=== PATIENT | female | born 1970 | race Caucasian/White ===

== ENCOUNTER 2019-02-12 17:25 | Inpatient (IN) | payer BC, OTHER ==
[2019-02-12] VITALS (8 sets, daily range): BP systolic 79–96; BP diastolic 48–62
[~2019-02-12] VITALS: Ht 165.1 cm; Wt 92.1 kg
[2019-02-12] MEDS ORDERED: NS IV 1000 ML 1,000 ML IV STA ×2 (18:27→19:50)
[2019-02-12] MEDS ORDERED: KETOROLAC 30 MG/ML VIAL IVP ONE (18:30)
[2019-02-12] MEDS ORDERED: IOHEXOL 350 MG/ML 100 ML (OMNIPAQUE 350) VIAL IV ONE (18:30)
[2019-02-12] MEDS ORDERED: HOLD METFORMIN - RECEIVED CONTRAST 20 ML VIAL IV SCH (18:30)
[2019-02-12] MEDS ORDERED: ORPHENADRINE 60 MG/2 ML (NORFLEX) AMP IV ONE (18:30)
[2019-02-12] MEDS ORDERED: NS 100 ML (IVPB) BAG IV ONE (18:30)
--- NOTE | 2019-02-12 18:35 | ED Fall/Injury ---
General Chief Complaint: Rib Pain Stated Complaint: RIB PAIN, PT FELL DOWN STAIRS Nursing Triage Note: PT FELL OFF THE SIDE OF HER STEPS GOING INTO HER HOUSE DUE TO NO SIDERAILS. APPROXIMATELY 4 STEPS. Source: patient, family (Mom) History of Present Illness Date Seen by Provider: Feb 12, 2019 Time Seen by Provider: 18:04 Initial Comments 48 yo F presents with complaints of left rib pain and pain in her head, neck and left flank since falling off of a set of stairs when going up them to the house around 1630 today. She denies losing consciousness but was stunned for a while. She took Naproxen after the injury but has had increasing pain since the fall. She has had increasing head pain as well. She feels it was around 4-5 feet up when she fell. She has increased pain when she breaths in or palpation of her left chest wall. She is seeing "dots" in her vision now and diaphoretic on my exam, but family reports that she has a history of hypoglycemia and can get this way if she does not eat, however her glucose was 120 when checked in the ED. She had last eaten around lunch time. She is drowsy on exam and slow to answer questions as well. She had a hysterectomy. She denies seeing any blood in her urine and does need to urinate so will get a urine specimen while she is here in ED. Allergies and Home Medications Allergies Coded Allergies: No Known Drug Allergies (Unverified , 02/12/19) Patient Home Medication List Home Medication List Reviewed: Yes Review of Systems Review of Systems Constitutional: No chills; diaphoresis; No fever Eyes: Blurred Vision (seeing dots in her vision); Denies Photophobia Ears, Nose, Mouth, Throat: denies ear pain, denies ear discharge, denies nose pain, denies nose discharge, denies epistaxis Respiratory: No cough, No short of breath; other (left rib pains from where she fell and hit them on ground around 1630 today) Cardiovascular: chest pain (left rib pains from where she hit them on ground around 1630 today) Gastrointestinal: No nausea, No vomiting; other (left flank pain since the fall) Genitourinary: no symptoms reported Musculoskeletal: see HPI Skin: No change in color (no bruising) Psychiatric/Neurological: Headache, Weakness (generalized) Past Hxanegh-Gypyvt-Jxeain Hx Past Med/Social Hx: Reviewed Nursing Past Med/Soc Hx Patient Social History Alcohol Use: Denies Use Recreational Drug Use: No Smoking Status: Never a Smoker Type Used: Cigarettes 2nd Hand Smoke Exposure: No Recent Foreign Travel: No Contact w/Someone Who Travel: No Recent Infectious Disease Expo: No Recent Hopitalizations: No Physical Abuse: No Sexual Abuse: No Mistreated: No Fear: No Seasonal Allergies Seasonal Allergies: No Past Medical History Surgeries: Yes (2 D&C'S) Hysterectomy Respiratory: No Cardiac: Yes 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 oz. 81.471073uw; BMI Method:Stated General Appearance: WD/WN HEENT: PERRL/EOMI, normal ENT inspection, TMs normal (negative hemotympanum. no drainage of fluid from either TM), pharynx normal, other (no العراقي sign, no raccoon sign, no drainage of CSF from nose or ears.) Neck: full range of motion, supple, tender lateral (left side of paraspinal muscles) Cardiovascular: normal peripheral pulses, regular rate, rhythm Respiratory: lungs clear, no respiratory distress, no accessory muscle use, decreased breath sounds (poor inspiratory effort), other (tender to palpation on left side of chest wall. no crepitus) Gastrointestinal: normal bowel sounds, soft, no pulsatile mass, other (tender to palpation on left flank and wrapping around left abdominal wall) Rectal: deferred Back: no CVA tenderness, no vertebral tenderness Extremities: normal range of motion, non-tender, normal inspection, no calf tenderness Neurologic/Psychiatric: sharepoint admin II-XII nml as tested, no motor/sensory deficits, oriented x 3, other (patient is drowsy and slow to respond to questions) Skin: normal color, diaphoresis Raul Coma Score Best Eye Response: (4) Open Spontaneously Best Verbal Response: (5) Oriented Best Motor Response: (6) Obeys Commands [place] Total: 15 Progress/Results/Core Measures Results/Orders Lab Results Laboratory Tests Test 02/12/19 18:19 02/12/19 18:40 02/12/19 19:30 02/12/19 19:38 Range/Units Glucometer 120 H 70-110 MG/DL White Blood Count 9.1 4.3-11.0 10^3/uL Red Blood Count 4.37 4.35-5.85 10^6/uL Hemoglobin 12.4 11.5-16.0 G/DL Hematocrit 38 35-52 % Mean Corpuscular Volume 87 80-99 FL Mean Corpuscular Hemoglobin 28 25-34 PG Mean Corpuscular Hemoglobin Concent 33 32-36 G/DL Red Cell Distribution Width 13.1 10.0-14.5 % Platelet Count 395 130-400 10^3/uL Mean Platelet Volume 9.3 7.4-10.4 FL Neutrophils (%) (Auto) 58 42-75 % Lymphocytes (%) (Auto) 34 12-44 % Monocytes (%) (Auto) 6 0-12 % Eosinophils (%) (Auto) 1 0-10 % Basophils (%) (Auto) 0 0-10 % Neutrophils # (Auto) 5.3 1.8-7.8 X 10^3 Lymphocytes # (Auto) 3.1 1.0-4.0 X 10^3 Monocytes # (Auto) 0.5 0.0-1.0 X 10^3 Eosinophils # (Auto) 0.1 0.0-0.3 10^3/uL Basophils # (Auto) 0.0 0.0-0.1 10^3/uL Sodium Level 134 L 135-145 MMOL/L Potassium Level 4.6 3.6-5.0 MMOL/L Chloride Level 94 L 98-107 MMOL/L Carbon Dioxide Level 25 21-32 MMOL/L Anion Gap 15 H 5-14 MMOL/L Blood Urea Nitrogen 23 H 7-18 MG/DL Creatinine 1.20 0.60-1.30 MG/DL Estimat Glomerular Filtration Rate 48 BUN/Creatinine Ratio 19 Glucose Level 142 H 70-105 MG/DL Calcium Level 9.3 8.5-10.1 MG/DL Corrected Calcium 9.2 8.5-10.1 MG/DL Total Bilirubin 0.2 0.1-1.0 MG/DL Aspartate Amino Transf (AST/SGOT) 40 H 5-34 U/L Alanine Aminotransferase (ALT/SGPT) 38 0-55 U/L Alkaline Phosphatase 123 40-136 U/L Total Protein 7.5 6.4-8.2 GM/DL Albumin 4.1 3.2-4.5 GM/DL Urine Color YELLOW Urine Clarity CLEAR Urine pH 5.5 5-9 Urine Specific [place] 1.010 L 1.016-1.022 Urine Protein NEGATIVE NEGATIVE Urine Glucose (UA) NEGATIVE NEGATIVE Urine Ketones NEGATIVE NEGATIVE Urine Nitrite NEGATIVE NEGATIVE Urine Bilirubin NEGATIVE NEGATIVE Urine Urobilinogen 0.2 NORMAL MG/DL Urine Leukocyte Esterase NEGATIVE NEGATIVE Urine RBC (Auto) NEGATIVE NEGATIVE Urine RBC NONE /HPF Urine WBC 0-2 /HPF Urine Squamous Epithelial Cells 0-2 /HPF Urine Crystals PRESENT H /LPF Urine Calcium Oxalate Crystals MODERATE H /LPF Urine Bacteria TRACE /HPF Urine Casts PRESENT /LPF Urine Hyaline Casts 2-5 H /LPF Urine Mucus SMALL H /LPF Urine Culture Indicated NO My Orders Orders - GABRIELA PRAKASH MD Ua Culture If Indicated (02/12/19 18:24) Ct Head/Cervical Spine Wo (02/12/19 18:24) Iv/Invasive Line Insertion .IV start (02/12/19 18:) Cbc With Automated Diff (02/12/19:) Comprehensive Metabolic Panel (02/12/19 18:24) Ct Chest/Abdomen/Pelvis W (02/12/19 18:24) Accucheck Stat ONCE (02/12/19 18:24) Ketorolac Injection (Toradol Injection) (02/12/19 18:30) Ns Iv 1000 Ml (Sodium Chloride 0.9%) (02/12/19 18:27) Orphenadrine Injection (Norflex Injectio (02/12/19 18:30) Iohexol Injection (Omnipaque 350 Mg/Ml 1 (02/12/19 18:30) Received Contrast (Hold Metformin- Contr (02/12/19 18:30) Sodium Chloride Flush (Catheter Flush Sy (02/12/19 18:30) Ns (Ivpb) (Sodium Chloride 0.9% Ivpb Bag (02/12/19 18:30) Ice: Apply To Affected Area (02/12/19 18:30) Ondansetron Injection (Zofran Injectio (02/12/19 18:53) Protime With Inr (02/12/19 19:39) Partial Thromboplastin Time (02/12/19 19:39) Ns Iv 1000 Ml (Sodium Chloride 0.9%) (02/12/19 19:50) Ns Iv 1000 Ml (Sodium Chloride 0.9%) (02/12/19 20:00) Medications Given in ED Current Medications Medications Dose Ordered Sig/Ayaan Route Start Time Stop Time Status Last Admin Dose Admin Iohexol 100 ml ONCE ONCE IV 02/12/19 18:30 02/12/19 18:31 DC 02/12/19 19:10 100 ML Ketorolac Tromethamine 15 mg ONCE ONCE IVP 02/12/19 18:30 02/12/19 18:31 DC 02/12/19 18:42 15 MG Orphenadrine Citrate 30 mg ONCE ONCE IV 02/12/19 18:30 02/12/19 18:31 DC 02/12/19 18:41 30 MG Sodium Chloride 10 ml NEEDED PRN IV 02/12/19 18:30 02/12/19 19:11 10 ML Sodium Chloride 100 ml ONCE ONCE IV 02/12/19 18:30 02/12/19 18:31 DC 02/12/19 19:11 100 ML Vital Signs/I&O 02/12/19 17:42 Temp 98.7 Pulse 78 Resp 18 B/P (MAP) 134/94 (107) O2 Delivery Room Air Blood Pressure Mean: 107 FSBG Bedside Testing Finger Stick Blood Glucose: 120 Blood Glucose Action Taken: reported to dr prakash Progress Progress Note #1: Progress Note with her having diaphoresis and being slow to respond to questions will check her sugar. Since her glucose is 120 it really should not be causing her to be having hypoglycemia symptoms. Will check labs and CT scans to make sure she does not have other injuries causing her to have these symptoms will have her try some juice and crackers. Toradol and norflex for pain. Progress Note #2: Progress Note 192 As I was reviewing the imaging on her CT scans the radiologist called and informed me that she did have a splenic rupture with active bleeding into her abdomen and pelvis. I immediately contacted Dr. Simon the on-call surgeon and he plans to take the patient immediately to surgery on arrival to [place] [facility] the patient is unstable and her blood pressure has been dropping since she arrived in the emergency department. When talking to him her blood pressure was 97/54. She has a stable hemoglobin from the initial CBC of 12.4. Will attempt to get a second large-bore IV and a second bag of fluids. Contact the EMS for transfer and had on coags to her blood work. Progress Note #3: Time: 20:03 Progress Note I called and updated her mom about the injuries and need for emergent transfer and surgery so that she is aware. Diagnostic Imaging Diagonstic Imaging: CT Plain Films/CT/US/NM/MRI: c-spine, head Comments NAME: CHAK[facility]ANDRA [facility] REC#: [id number] PT STATUS: REG ER : 1970 PHYSICIAN: GABRIELA PRAKASH MD ADMIT DATE: 02/12/19/ER FS Signed Date of Exam:02/12/19 CT HEAD/CERVICAL SPINE WO PROCEDURE: CT head and CT cervical spine without contrast. TECHNIQUE: Multiple contiguous axial images were obtained through the brain and cervical spine without the use of intravenous contrast. Sagittal and coronal reformations through the cervical spine were then performed. Auto Exposure Controls were utilized during the CT exam to meet ALARA standards for radiation dose reduction. INDICATION: Fall from steps, pain. COMPARISON: No priors. FINDINGS: CT head: There is no intracranial hemorrhage, hydrocephalus, edema, mass, mass effect, or evidence for an elevation of the intracranial pressures. No calvarial deformity, no hemo-sinus, and no pneumocephalus. Ventricular system is nondilated and nondisplaced. No acute abnormality. CT cervical spine: Cervical alignment is anatomic. The body heights are maintained. The alignment is normal. Vertebral statures are normal. No fracture or paravertebral hematoma. IMPRESSION: 1. CT head: Negative. 2. CT cervical spine: Negative. Dictated by: Dictated on workstation # [id number] Dict: 02/12/191920 Trans: 02/12/191934 AS6 [id number] Interpreted by: KWAME MORALES Electronically signed by: KWAME MORALES 02/12/191934 Diagonstic Imaging: CT Plain Films/CT/US/NM/MRI: chest, abdomen, pelvis Comments NAME: CHAKASEPTEMBER [facility] REC#: [id number] PT STATUS: REG ER : 1970 PHYSICIAN: GABRIELA PRAKASH MD ADMIT DATE: 02/12/19/ER FS Signed Date of Exam:02/12/19 CT CHEST/ABDOMEN/PELVIS W PROCEDURE: CT chest, abdomen, and pelvis with contrast. TECHNIQUE: Multiple contiguous axial images were obtained through the chest, abdomen, and pelvis after the administration of intravenous contrast. Auto Exposure Controls were utilized during the CT exam to meet ALARA standards for radiation dose reduction. INDICATION: Fall. Left-sided rib pain. 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 There are no findings of dissection. There is some mild ascending aortic ectasia measuring up to 3.9 cm. Heart size appears appropriate. There is no mediastinal adenopathy. The lungs demonstrate no evidence of focal infiltrate or consolidation. There is no effusion or evidence of a hemothorax. There is no pneumothorax. There is no fracture evident of the shoulder girdles. There is no sternal or manubrial fracture. There may be hairline fractures of the posterior left 10th and 11th ribs, but there is no evidence of a displaced rib fracture. Within the abdomen, there is a large splenic laceration with active contrast extravasation and large degree of contrast accumulating within a perisplenic hematoma. The liver demonstrates no laceration. There is a benign hemangioma within the left hepatic lobe. The gallbladder is nondistended. There is no adrenal hematoma. The pancreas is unremarkable. The kidneys enhance normally and are nonobstructed. Small and large bowel are normal in caliber without obstruction or abnormal bowel thickening. There is no bowel obstruction. There is moderate hemoperitoneum evident within the pelvis. Urinary bladder is unremarkable. The patient is status post hysterectomy. There are no findings of a pelvic fracture. There is a hematoma involving the left flank. Alignment of the thoracic and lumbar spine appears maintained. The facets are normally aligned. There is no facet joint or disc space widening. The vertebral body heights are maintained. No acute spinal fracture evident. IMPRESSION: 1. Complex splenic laceration with large perisplenic hematoma and a large degree of active bleeding and contrast extravasation. There is also moderate hemoperitoneum evident within the pelvis. 2. Apparent nondisplaced left posterior 10th and 11th rib fractures. 3. Left subcutaneous flank hematoma just above the gluteal fossa without active extravasation. 4. Lungs clear without evidence of hemothorax. 5. 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 There is ascending aortic ectasia but no dissection. Findings of the large degree of active contrast extravasation and active bleeding related to the patient's splenic laceration were called to Dr. Prakash in the [facility] at 7:29 p.m. Dictated by: Dictated on workstation # [id number] Dict: 02/12/191922 Trans: 02/12/191941 [id number] Interpreted by: ALBERTINA BLEDSOE MD Electronically signed by: ALBERTINA BLEDSOE MD 02/12/191941 Critical Care Note Critical Care Total Time (minutes) 45 minutes Progress 45 minutes of critical care time was spent with the patient. This time was excluding separately billable procedures. Time was spent in obtaining history from patient and family, ordering labs and reviewing results, ordering radiology tests and reviewing results, discussion with consultants and family, documentation in the chart. Departure Communication (Admissions) Time/Spoke to Admitting Phy: 19:29 D/w Dr. Simon about traumatic rupture of spleen and emergent need for transfer. He accepted and since her blood pressure was dropping he will contact the nurse crane crew supervisor and OR crew to meet the patient for emergent surgery. I did also speak with the ER and nurse practitioner at [facility] so they are aware too. Impression Primary Impression: Traumatic rupture of spleen Qualified Codes: S36.09XA - Other injury of spleen, initial encounter Additional Impressions: Fall (on) (from) other stairs and steps, initial encounter Multiple fractures of ribs, left side, initial encounter for closed fracture Disposition: ADMITTED INPATIENT Condition: Critical Admissions Decision to Admit Reason: Admit from ER (Trauma) Decision to Admit/Date: Feb 12, 2019 Time/Decision to Admit Time: 19:29 Departure-Patient Inst. Referrals: SOCORRO CONKLIN APRN (PCP) Primary Care Physician GABRIELA PRAKASH MD Feb 12, 2019 18:35
[2019-02-12 18:48] LABS: WHITE BLOOD COUNT 9.1 10^3/uL (4.3-11.0)
[2019-02-12 18:49] LABS: BASOPHILS % (AUTO) 0 % (0-10); EOSINOPHILS % (AUTO) 1 % (0-10); HEMATOCRIT 38 % (35-52); HEMOGLOBIN 12.4 G/DL (11.5-16.0); LYMPHOCYTES # (AUTO) 3.1 X 10^3 (1.0-4.0); LYMPHOCYTES % (AUTO) 34 % (12-44); MEAN CORPUSCULAR HEMOGLOBIN 28 PG (25-34); MEAN CORPUSCULAR HGB CONC 33 G/DL (32-36); MEAN CORPUSCULAR VOLUME 87 FL (80-99); MEAN PLATELET VOLUME 9.3 FL (7.4-10.4); MONOCYTES # (AUTO) 0.5 X 10^3 (0.0-1.0); MONOCYTES % (AUTO) 6 % (0-12); NEUTROPHILS # (AUTO) 5.3 X 10^3 (1.8-7.8); NEUTROPHILS % (AUTO) 58 % (42-75); PLATELET COUNT 395 10^3/uL (130-400); RED CELL DISTRIBUTION WIDTH 13.1 % (10.0-14.5)
[2019-02-12 18:50] LABS: EOSINOPHILS # (AUTO) 0.1 10^3/uL (0.0-0.3)
[2019-02-12] MEDS ORDERED: ONDANSETRON 4 MG/2 ML (SDV) Z0FRAN IVP STA (18:53)
[2019-02-12 19:05] LABS: POTASSIUM 4.6 MMOL/L (3.6-5.0)
[2019-02-12 19:06] LABS: ALBUMIN 4.1 GM/DL (3.2-4.5); BILIRUBIN,TOTAL 0.2 MG/DL (0.1-1.0); CALCIUM 9.3 MG/DL (8.5-10.1); CREATININE SERUM 1.2 MG/DL (0.60-1.30); TOTAL PROTEIN 7.5 GM/DL (6.4-8.2)
[2019-02-12] MEDS: CATHETER FLUSH 10 ML SYR IV PRN (19:11)
--- NOTE | 2019-02-12 19:28 | Diagnostic Imaging Report ---
PROCEDURE: CT head and CT cervical spine without contrast. TECHNIQUE: Multiple contiguous axial images were obtained through the brain and cervical spine without the use of intravenous contrast. Sagittal and coronal reformations through the cervical spine were then performed. Auto Exposure Controls were utilized during the CT exam to meet ALARA standards for radiation dose reduction. INDICATION: Fall from steps, pain. COMPARISON: No priors. FINDINGS: CT head: There is no intracranial hemorrhage, hydrocephalus, edema, mass, mass effect, or evidence for an elevation of the intracranial pressures. No calvarial deformity, no hemo-sinus, and no pneumocephalus. Ventricular system is nondilated and nondisplaced. No acute abnormality. CT cervical spine: Cervical alignment is anatomic. The body heights are maintained. The alignment is normal. Vertebral statures are normal. No fracture or paravertebral hematoma. IMPRESSION: 1. CT head: Negative. 2. CT cervical spine: Negative. Dictated by: Dictated on workstation # [id number]
--- NOTE | 2019-02-12 19:42 | Diagnostic Imaging Report ---
PROCEDURE: CT chest, abdomen, and pelvis with contrast. TECHNIQUE: Multiple contiguous axial images were obtained through the chest, abdomen, and pelvis after the administration of intravenous contrast. Auto Exposure Controls were utilized during the CT exam to meet ALARA standards for radiation dose reduction. INDICATION: Fall. Left-sided rib pain. 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 There are no findings of dissection. There is some mild ascending aortic ectasia measuring up to 3.9 cm. Heart size appears appropriate. There is no mediastinal adenopathy. The lungs demonstrate no evidence of focal infiltrate or consolidation. There is no effusion or evidence of a hemothorax. There is no pneumothorax. There is no fracture evident of the shoulder girdles. There is no sternal or manubrial fracture. There may be hairline fractures of the posterior left 10th and 11th ribs, but there is no evidence of a displaced rib fracture. Within the abdomen, there is a large splenic laceration with active contrast extravasation and large degree of contrast accumulating within a perisplenic hematoma. The liver demonstrates no laceration. There is a benign hemangioma within the left hepatic lobe. The gallbladder is nondistended. There is no adrenal hematoma. The pancreas is unremarkable. The kidneys enhance normally and are nonobstructed. Small and large bowel are normal in caliber without obstruction or abnormal bowel thickening. There is no bowel obstruction. There is moderate hemoperitoneum evident within the pelvis. Urinary bladder is unremarkable. The patient is status post hysterectomy. There are no findings of a pelvic fracture. There is a hematoma involving the left flank. Alignment of the thoracic and lumbar spine appears maintained. The facets are normally aligned. There is no facet joint or disc space widening. The vertebral body heights are maintained. No acute spinal fracture evident. IMPRESSION: 1. Complex splenic laceration with large perisplenic hematoma and a large degree of active bleeding and contrast extravasation. There is also moderate hemoperitoneum evident within the pelvis. 2. Apparent nondisplaced left posterior 10th and 11th rib fractures. 3. Left subcutaneous flank hematoma just above the gluteal fossa without active extravasation. 4. Lungs clear without evidence of hemothorax. 5. 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 There is ascending aortic ectasia but no dissection. Findings of the large degree of active contrast extravasation and active bleeding related to the patient's splenic laceration were called to Dr. James in the [facility] at 7:29 p.m. Dictated by: Dictated on workstation # [id number]
[2019-02-12 19:47] LABS: CLARITY,URINE CLEAR; COLOR,URINE YELLOW; GLUCOSE, URINE (UA) NEGATIVE (NEGATIVE); PH,URINE 5.5 (5-9); PROTEIN,URINE NEGATIVE (NEGATIVE)
[2019-02-12 19:48] LABS: BACTERIA,URINE TRACE /HPF; BILIRUBIN,URINE NEGATIVE (NEGATIVE); CALCIUM OXALATE CRYSTALS,UR MODERATE /LPF; KETONES,URINE NEGATIVE (NEGATIVE); LEUKOCYTE ESTERASE ,URINE NEGATIVE (NEGATIVE); NITRITE,URINE NEGATIVE (NEGATIVE); SQUAMOUS EPITHELIAL CELL,UR 0-2 /HPF; UROBILINOGEN,URINE 0.2 MG/DL (NORMAL); WBC,URINE 0-2 /HPF
[2019-02-12] MEDS ORDERED: NS IV 1000 ML 1,000 ML IV SCH (20:00)
[2019-02-12 20:01] LABS: INR 1.1 (0.8-1.4); PROTHROMBIN TIME PATIENT 14.2 SEC (12.2-14.7)
[2019-02-12] MEDS ORDERED: fentaNYL INJECTION 100 MCG/2 ML AMP ONE (20:34)
--- NOTE | 2019-02-12 20:47 | Consultation - Surgery ---
History of Present Illness History of Present Illness Patient Consulted On(junito/time) 02/12/19 20:42 Time Seen by Provider: 20:33 History of Present Illness Surgery consulted regarding splenic laceration with active extravasation and hypotension. HPI per ED: 48 yo F presents with complaints of left rib pain and pain in her head, neck and left flank since falling off of a set of stairs when going up them to the house around 1630 today. She denies losing consciousness but was stunned for a while. She took Naproxen after the injury but has had increasing pain since the fall. She has had increasing head pain as well. She feels it was around 4-5 feet up when she fell. She has increased pain when she breaths in or palpation of her left chest wall. She is seeing "dots" in her vision now and diaphoretic on my exam, but family reports that she has a history of hypoglycemia and can get this way if she does not eat, however her glucose was 120 when checked in the ED. She had last eaten around lunch time. She is drowsy on exam and slow to answer questions as well. She had a hysterectomy. She denies seeing any blood in her urine and does need to urinate so will get a urine specimen while she is here in ED. I met pt at door as she was rolled in and walked her back to the OR. Pt is lethargic and diaphoretic, denies abdominal pain and stated she has to pee. Allergies and Home Medications Allergies Coded Allergies: No Known Drug Allergies (Unverified , 02/12/19) Patient Home Medication List Home Medication List Reviewed: Yes Past Lqltsun-Dotuqe-Yzswaa Hx Patient Social History Alcohol Use: Denies Use Recreational Drug Use: No Smoking Status: Never a Smoker Type Used: Cigarettes 2nd Hand Smoke Exposure: No Recent Foreign Travel: No Contact w/Someone Who Travel: No Recent Infectious Disease Expo: No Recent Hopitalizations: No Seasonal Allergies Seasonal Allergies: No Surgeries History of Surgeries: Yes (2 D&C'S) Surgeries: Hysterectomy Respiratory History of Respiratory Disorde: No Cardiovascular History of Cardiac Disorders: Yes Cardiac Disorders: Hypertension 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 Genitourinary History of Genitourinary Disor: No Gastrointestinal History of Gastrointestinal Di: No Musculoskeletal History of Musculoskeletal Dis: No Endocrine Endocrine Disorders: Hypothyroidsim HEENT History of HEENT Disorders: No Cancer History of Cancer: No Psychosocial History of Psychiatric Problem: No Blood Transfusions History of Blood Disorders: No Family Medical History Significant Family History: Diabetes, Hypertension Review of Systems-General Constitutional: diaphoresis, malaise, weakness EENTM: blurred vision; No mouth swelling, No epistaxis, No throat swelling Respiratory: No cough, No dyspnea on exertion, No hemoptysis; short of breath Cardiovascular: No chest pain, No palpitations, No syncope Gastrointestinal: No abdominal pain, No dysphagia, No hematemesis; loss of appetite; No nausea, No vomiting Genitourinary: No dysuria, No frequency, No hematuria Musculoskeletal: back pain, joint pain, joint swelling, muscle pain, muscle stiffness Skin: No change in color, No change in hair/nails, No rash Psychiatric/Neurological: Denies Anxiety, Denies Depressed, Denies Seizure, Denies Tremors Other pt denies any hx of abnormal bleeding or bruising Physical Exam-General Problems Physical Exam Vital Signs Vital Signs - First Documented 02/12/19 02/12/19 17:42 20:05 Temp 98.7 Pulse 78 Resp 18 B/P (MAP) 134/94 (107) Pulse Ox 99 O2 Delivery Room Air Capillary Refill : Less Than 3 Seconds General Appearance: moderate distress, obese Eyes: Bilateral Eye PERRL, Bilateral Eye EOMI HEENT: pharynx normal; No scleral icterus (R), No scleral icterus (L); pale conjunctivae (R), pale conjunctivae (L) Neck: non-tender, full range of motion, supple Respiratory: lungs clear, normal breath sounds, no respiratory distress, no accessory muscle use Cardiovascular: no murmur, tachycardia Gastrointestinal: normal bowel sounds, soft, no organomegaly, no pulsatile mass, hernia (small umbilical), other (large left flank hematoma) Back: CVA tenderness (L), muscle spasm, vertebral tenderness Extremities: normal range of motion, non-tender, normal inspection, no pedal edema, no calf tenderness 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, no motor/sensory deficits, alert, depressed affect Skin: damp, ecchymosis (left flank), pallor Lymphatic: no adenopathy (neck, axilla or groin) Data Review Labs Laboratory Tests 02/12/19 18:19: Glucometer 120H 02/12/19 18:40: White Blood Count 9.1, Red Blood Count 4.37, Hemoglobin 12.4, Hematocrit 38, Mean Corpuscular Volume 87, Mean Corpuscular Hemoglobin 28, Mean Corpuscular Hemoglobin Concent 33, Red Cell Distribution Width 13.1, Platelet Count 395, Mean Platelet Volume 9.3, Neutrophils (%) (Auto) 58, Lymphocytes (%) (Auto) 34, Monocytes (%) (Auto) 6, Eosinophils (%) (Auto) 1, Basophils (%) (Auto) 0, Neutrophils # (Auto) 5.3, Lymphocytes # (Auto) 3.1, Monocytes # (Auto) 0.5, Eosinophils # (Auto) 0.1, Basophils # (Auto) 0.0, Sodium Level 134L, Potassium Level 4.6, Chloride Level 94L, Carbon Dioxide Level 25, Anion Gap 15H, Blood Urea Nitrogen 23H, Creatinine 1.20, Estimat Glomerular Filtration Rate 48, BUN/Creatinine Ratio 19, Glucose Level 142H, Calcium Level 9.3, Corrected Calcium 9.2, Total Bilirubin 0.2, Aspartate Amino Transf (AST/SGOT) 40H, Alanine Aminotransferase (ALT/SGPT) 38, Alkaline Phosphatase 123, Total Protein 7.5, Albumin 4.1 02/12/19 19:30: Urine Color YELLOW, Urine Clarity CLEAR, Urine pH 5.5, Urine Specific [place] 1.010L, Urine Protein NEGATIVE, Urine Glucose (UA) NEGATIVE, Urine Ketones NEGATIVE, Urine Nitrite NEGATIVE, Urine Bilirubin NEGATIVE, Urine Urobilinogen 0.2, Urine Leukocyte Esterase NEGATIVE, Urine RBC (Auto) NEGATIVE, Urine RBC NONE, Urine WBC 0-2, Urine Squamous Epithelial Cells 0-2, Urine Crystals PRESENTH, Urine Calcium Oxalate Crystals MODERATEH, Urine Bacteria TRACE, Urine Casts PRESENT, Urine Hyaline Casts 2-5H, Urine Mucus SMALLH, Urine Culture Indicated NO 02/12/19 19:38: Prothrombin Time 14.2, INR Comment 1.1, Activated Partial Thromboplast Time [address] CHEST/ABDOMEN/PELVIS W PROCEDURE: CT chest, abdomen, and pelvis with contrast. TECHNIQUE: Multiple contiguous axial images were obtained through the chest, abdomen, and pelvis after the administration of intravenous contrast. Auto Exposure Controls were utilized during the CT exam to meet ALARA standards for radiation dose reduction. INDICATION: Fall. Left-sided rib pain. 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 There are no findings of dissection. There is some mild ascending aortic ectasia measuring up to 3.9 cm. Heart size appears appropriate. There is no mediastinal adenopathy. The lungs demonstrate no evidence of focal infiltrate or consolidation. There is no effusion or evidence of a hemothorax. There is no pneumothorax. There is no fracture evident of the shoulder girdles. There is no sternal or manubrial fracture. There may be hairline fractures of the posterior left 10th and 11th ribs, but there is no evidence of a displaced rib fracture. Within the abdomen, there is a large splenic laceration with active contrast extravasation and large degree of contrast accumulating within a perisplenic hematoma. The liver demonstrates no laceration. There is a benign hemangioma within the left hepatic lobe. The gallbladder is nondistended. There is no adrenal hematoma. The pancreas is unremarkable. The kidneys enhance normally and are nonobstructed. Small and large bowel are normal in caliber without obstruction or abnormal bowel thickening. There is no bowel obstruction. There is moderate hemoperitoneum evident within the pelvis. Urinary bladder is unremarkable. The patient is status post hysterectomy. There are no findings of a pelvic fracture. There is a hematoma involving the left flank. Alignment of the thoracic and lumbar spine appears maintained. The facets are normally aligned. There is no facet joint or disc space widening. The vertebral body heights are maintained. No acute spinal fracture evident. IMPRESSION: 1. Complex splenic laceration with large perisplenic hematoma and a large degree of active bleeding and contrast extravasation. There is also moderate hemoperitoneum evident within the pelvis. 2. Apparent nondisplaced left posterior 10th and 11th rib fractures. 3. Left subcutaneous flank hematoma just above the gluteal fossa without active extravasation. 4. Lungs clear without evidence of hemothorax. 5. 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 There is ascending aortic ectasia but no dissection. Assessment/Plan Assessment/Plan Assessment/Plan Grade IV Splenic Laceration with active extravasation and Hypotension, probably secondary to acute blood loss Plan is to go straight to the OR for Exploratory Laparotomy with Splenectomy. Discussed this emergent surgery with pt; risks and complications not limited to pain, bleeding, infection, scar, damage to bowel and need for further procedure. If she does not have surgery she will almost certainly ; she is starting to go into hemorrhagic shock. I have ordered to units of uncrossed blood and will type and cross in case we need to give more blood. Will get repeat H/H once pt is asleep. All questions answered to her satisfaction and she understood the severity of her situation. AJ HENRIQUEZ DO Feb 12, 2019 20:47
[2019-02-12] MEDS ORDERED: ceFAZolin INJECTION 2,000 MG ONE (20:49)
[2019-02-12] MEDS ORDERED: TRANEXAMIC ACID 100 MG/ML 10 ML INJECTION IV ONE (21:03)
[2019-02-12] MEDS ORDERED: proPOfol 200 MG/20 ML (DIPRIVAN) VIAL IV ONE (21:14)
[2019-02-12] MEDS ORDERED: PHENYLEPHRINE 100 MCG/ML 10 ML (ANESTHESIA) SYR ONE (21:14)
[2019-02-12] MEDS ORDERED: ROCURONIUM 10 MG/ML 5 ML SYRINGE IV ONE (21:14)
[2019-02-12] MEDS ORDERED: ONDANSETRON 4 MG/2 ML (SDV) Z0FRAN ONE ×2 (21:14→21:55)
[2019-02-12] MEDS ORDERED: SEVOFLURANE (ULTANE) 15 ML INHAL SOLN ONE ×3 (21:14→22:18)
[2019-02-12] MEDS ORDERED: DEXAMETHASONE 10 MG/ML (DECADRON) 1 ML VIAL ONE (21:14)
[2019-02-12] MEDS ORDERED: LIDOCAINE PF 2% 5 ML (XYLOCAINE) VIAL ONE (21:14)
[2019-02-12] MEDS: LACTATED RINGERS 1,000 ML IV PRN ×2 (21:15→21:45)
[2019-02-12] MEDS ORDERED: morphine INJ 10 MG/ML 1ML (SYR OR VIAL) ONE (21:55)
[2019-02-12 22:00] LABS: BASOPHILS % (AUTO) 0 % (0-10); EOSINOPHILS % (AUTO) 0 % (0-10); HEMATOCRIT 27 % (35-52); HEMOGLOBIN 8.7 G/DL (11.5-16.0); LYMPHOCYTES # (AUTO) 1.9 X 10^3 (1.0-4.0); LYMPHOCYTES % (AUTO) 18 % (12-44); MEAN CORPUSCULAR HEMOGLOBIN 29 PG (25-34); MEAN CORPUSCULAR HGB CONC 33 G/DL (32-36); MEAN CORPUSCULAR VOLUME 90 FL (80-99); MEAN PLATELET VOLUME 9.5 FL (7.4-10.4); MONOCYTES # (AUTO) 0.7 X 10^3 (0.0-1.0); MONOCYTES % (AUTO) 7 % (0-12); NEUTROPHILS # (AUTO) 7.8 X 10^3 (1.8-7.8); NEUTROPHILS % (AUTO) 75 % (42-75); PLATELET COUNT 186 10^3/uL (130-400); RED CELL DISTRIBUTION WIDTH 13.8 % (10.0-14.5); WHITE BLOOD COUNT 10.4 10^3/uL (4.3-11.0)
[2019-02-12] MEDS ORDERED: BUPIVACAINE 0.5% 30 ML (SENSORCAINE) VIAL ONE (22:01)
--- NOTE | 2019-02-12 22:03 | Progress Note-Post Operative ---
Post-Operative Progess Note Surgeon (s)/Loan Interviewer Mortgage (s) Surgeon AJ HENRIQUEZ DO Loan Interviewer Mortgage: [place]hel[place] Pre-Operative Diagnosis Splenic Laceration grade IV with active extravasation Post-Operative Diagnosis same Procedure & Operative Findings Date of Procedure 02/12/19 Procedure Performed/Findings Open Splenectomy Anesthesia Type GET Estimated Blood Loss Estimated blood loss (mL): 2500ml Specimens/Packing Specimens Removed spleen and accesory spleen AJ HENRIQUEZ DO Feb 12, 2019 22:03
[2019-02-12] MEDS ORDERED: ONDANSETRON 4 MG/2 ML (SDV) Z0FRAN IVP PRN (22:45)
[2019-02-12] MEDS ORDERED: morphine INJ 10 MG/ML 1ML (SYR OR VIAL) IVP ONE (22:45)
[2019-02-12] MEDS ORDERED: MEPERIDINE (DEMEROL) INJ 50 MG/ML IVP ONE (22:45)
[2019-02-13] VITALS (16 sets, daily range): BP systolic 88–130; BP diastolic 52–82
--- NOTE | 2019-02-13 00:05 | NUR ---
PATIENT OUT OF RECOVERY AND REPORT GIVEN TO THIS RN AT 2330.
--- NOTE | 2019-02-13 01:45 | OPERATIVE REPORT ---
DATE OF SERVICE: PREOPERATIVE DIAGNOSES: 1. Splenic laceration with active extravasation. 2. Anemia secondary to acute blood loss. POSTOPERATIVE DIAGNOSES: 1. Splenic laceration with active extravasation. 2. Anemia secondary to acute blood loss. PROCEDURE: Open splenectomy. SURGEON: Aj Simon DO. STOPPER GRINDER: Howie Jacinto DO. ANESTHESIA: General endotracheal tube. SPECIMEN: Spleen and accessory spleen. BLOOD LOSS: From the spleen was approximately 2500 mL. FLUIDS: Per anesthesia. POSTOPERATIVE CONDITION: Stable. INDICATION FOR PROCEDURE: The patient is a 48-year-old female who fell and landed on her steps at around 4:30 p.m. today. When in the emergency room, CT showed a splenic laceration looks like a grade IV with active extravasation. She was hypotensive, probably anemic. FINDINGS: The patient had active extravasation from a complete rupture of the spleen. Spleen was removed. PROCEDURE NOTE: After informed consent was obtained, the patient was brought to the operating room, placed on the table in supine position. She was sterilely prepped and draped in normal fashion. I made the incision with #10 blade, just from subxiphoid to above the umbilicus, carried down through the skin into subcutaneous tissue, deepened down the subcutaneous tissue with Bovie electrocautery down to the fascia. Fascia was incised with Bovie electrocautery, bluntly entered the abdomen and then increased the incision through the fascia superiorly and inferiorly. I then placed the Omni retractor to get visualization. At this point, I then packed the intestine down into the pelvis and then used retractors to hold this open and then started coming across the stomach to get into the lesser sac with the LigaSure, clamping, coagulating and transecting and in this fashion completely freeing up the stomach away from the spleen. Once we could get it free, able to see active extravasation, had suctioned out old clotted blood that was already in there and able to then feel the splenic pedicle, placed an Endo-ZOHRA 2.0 stapler across the pedicle, clamped and fired and thereby transecting and able to then at this point removed the spleen. Spleen came out. Packed with 3 lap sponges and held pressure at this point, ran the small intestine. The small intestine looked good. Suctioned blood out of the pelvis as well. Rest of the stomach looked good, made sure that the OG tube was in the stomach and suctioned out the stomach. I went back and looked up into the area. There was no bleeding at this point, copiously irrigated with 3 liters of warm normal saline, suctioned this all out, able to get up in the left upper quadrant and again it was dry. No bleeding. So, at this point then elected to close the incision, closing the incision with #1 double stranded PDS suture running from superior portion to inferior portion tying to itself, copiously irrigated the midline incision and then closed the skin with tony. Area was cleaned and dried and a dressing was placed. The patient tolerated the procedure. Sponge, instrument and needle count was correct at the end of the case. Dr. Jacinto assisted in this case helping to close the incision, identify anatomy, move anatomy out of way. Job ID: [id number] DocumentID: [id number] Dictated Date: 02/12/2019 22:11:57 Vocational Case Manager Date: 02/13/2019 01:44:36 Dictated By: AJ SIMON DO MTDFrederick
[2019-02-13] MEDS: morphine INJ 4 MG/ML 1 ML (VIAL/SYRINGE) IVP PRN ×3 (01:48→17:04)
[2019-02-13] MEDS: NS IV 1000 ML 1,000 ML IV SCH ×2 (01:49→07:32)
[2019-02-13 03:42] LABS: BASOPHILS % (AUTO) 0 % (0-10); EOSINOPHILS % (AUTO) 0 % (0-10); HEMATOCRIT 32 % (35-52); HEMOGLOBIN 10.4 G/DL (11.5-16.0); LYMPHOCYTES % (AUTO) 8 % (12-44); MEAN CORPUSCULAR HEMOGLOBIN 29 PG (25-34); MEAN CORPUSCULAR HGB CONC 33 G/DL (32-36); MEAN CORPUSCULAR VOLUME 89 FL (80-99); MEAN PLATELET VOLUME 10.2 FL (7.4-10.4); MONOCYTES # (AUTO) 0.6 X 10^3 (0.0-1.0); MONOCYTES % (AUTO) 4 % (0-12); NEUTROPHILS % (AUTO) 87 % (42-75); PLATELET COUNT 241 10^3/uL (130-400); RED CELL DISTRIBUTION WIDTH 13.9 % (10.0-14.5); WHITE BLOOD COUNT 12.6 10^3/uL (4.3-11.0)
[2019-02-13 04:20] LABS: BUN/CREATININE RATIO 21; CALCIUM 7.7 MG/DL (8.5-10.1); CARBON DIOXIDE 19 MMOL/L (21-32); CHLORIDE 107 MMOL/L (98-107); CREATININE SERUM 0.95 MG/DL (0.60-1.30); GFR ESTIMATED > 60; GLUCOSE 172 MG/DL (70-105); MAGNESIUM 1.7 MG/DL (1.6-2.4); PHOSPHORUS 4.5 MG/DL (2.3-4.7); POTASSIUM 4.8 MMOL/L (3.6-5.0); SODIUM 137 MMOL/L (135-145)
[2019-02-13] MEDS ORDERED: ceFAZolin INJECTION 1,000 MG ONE ×2 (05:40→05:41)
[2019-02-13] MEDS ORDERED: NS (IVPB) 50 ML ONE (05:42)
[2019-02-13] MEDS: LACTATED RINGERS 1,000 ML IV SCH ×3 (06:00→15:11)
[2019-02-13] MEDS: ceFAZolin 2 GM IV Premixed 50 ML IV SCH ×2 (06:01→07:29)
--- NOTE | 2019-02-13 07:06 | Diagnostic Imaging Report ---
Portable semi-erect AP chest at 3:28. Indication: Splenic rupture The heart size is within normal limits and stable when compared to CT chest exam performed on 02/12/2019. As noted on previous study, there is a right-sided aortic arch. The lungs are clear. There is no evidence for failure, pneumonia or for pleural effusion. The fractures of the left 10th and 11th ribs seen on CT exam are not well appreciated on this study. The mediastinum is not widened. Impression: 1. There is no evidence for acute cardiopulmonary abnormality. 2. There is a right-sided aortic arch. Dictated by: Dictated on workstation # [id number]
[2019-02-13] MEDS: MAGNESIUM 1 GM/100 ML IVPB 100 ML IV SCH ×2 (07:29→08:36)
[2019-02-13] MEDS: PANTOPRAZOLE 40 MG (PROTONIX) VIAL IVP SCH (07:51)
[2019-02-13] MEDS: HYDROcodone/APAP 5 MG/325 MG (LORTAB) TAB PO PRN ×4 (09:32→23:59)
--- NOTE | 2019-02-13 11:37 | Progress Note - Surgery ---
LV SULLIVAN, 02/13/19 1137: Subjective Date Seen by a Provider: Feb 13, 2019 Time Seen by a Provider: 11:30 Subjective/Events-last exam Pt is awake and oriented post-op. C/o abdominal pain and dizziness when she stands. Pt states she is not eating much. Moving her to 4th floor and will i ncrease activity. Using IS to prevent pneumonia. Objective Exam Vital Signs Date Time Temp Pulse Resp B/P (MAP) Pulse Ox O2 Delivery O2 Flow Rate FiO2 02/13/19 09:00 93 26 100/60 (73) 98 Room Air 02/13/19 08:00 83 26 104/56 (72) 97 Room Air 02/13/19 07:48 Room Air 02/13/19 07:47 99.6 02/13/19 07:00 75 16 98/61 (73) 100 Room Air 02/13/19 07:00 80 02/13/19 06:00 72 20 99/56 (70) 100 Room Air 02/13/19 05:00 74 14 98/64 (75) 99 Room Air 02/13/19 04:00 71 15 98/67 (77) 99 Room Air 02/13/19 04:00 Room Air 02/13/19 03:41 Room Air 02/13/19 03:00 70 15 94/82 (86) 100 Room Air 02/13/19 02:00 62 16 88/74 (79) 97 Room Air 02/13/19 01:30 72 13 96/64 (75) 100 Room Air 02/13/19 01:00 73 16 93/63 (73) 100 Room Air 02/13/19 01:00 73 02/13/19 00:30 59 22 94/60 (71) 99 Room Air 02/13/19 00:15 57 17 93/60 (71) 100 Room Air 02/13/19 00:00 56 13 92/60 (71) 100 Room Air 02/13/19 00:00 Room Air 02/12/19 23:45 64 12 95/62 (73) 99 Room Air 02/12/19 23:30 97.6 18 100 Room Air 02/12/19 23:30 Room Air 02/12/19 23:30 96.4 56 14 87/55 (66) 100 Room Air 02/12/19 23:30 57 02/12/19 23:20 18 100 Room Air 02/12/19 23:20 Room Air 02/12/19 23:10 18 100 OxyMask 3 02/12/19 23:05 OxyMask 6 02/12/19 23:00 18 100 OxyMask 6 02/12/19 22:50 18 100 OxyMask 6 02/12/19 22:50 OxyMask 6 02/12/19 22:43 18 100 OxyMask 6 02/12/19 22:36 97.4 16 100 OxyMask 6 02/12/19 22:36 OxyMask 6 02/12/19 20:05 73 16 88/52 (64) 99 Room Air 02/12/19 17:42 98.7 78 18 134/94 (107) Room Air I & O 02/13/19 07:00 Intake Total 4320 ml Output Total 900 ml Balance 3420 ml Capillary Refill : Less Than 3 Seconds Gastrointestinal: normal bowel sounds, soft, no organomegaly, no pulsatile mass, hernia (small umbilical), other (large left flank hematoma) Results Lab Laboratory Tests 02/12/19 18:19: Glucometer 120H 02/12/19 18:40: White Blood Count 9.1, Red Blood Count 4.37, Hemoglobin 12.4, Hematocrit 38, Mean Corpuscular Volume 87, Mean Corpuscular Hemoglobin 28, Mean Corpuscular Hemoglobin Concent 33, Red Cell Distribution Width 13.1, Platelet Count 395, Mean Platelet Volume 9.3, Neutrophils (%) (Auto) 58, Lymphocytes (%) (Auto) 34, Monocytes (%) (Auto) 6, Eosinophils (%) (Auto) 1, Basophils (%) (Auto) 0, Neutrophils # (Auto) 5.3, Lymphocytes # (Auto) 3.1, Monocytes # (Auto) 0.5, Eosinophils # (Auto) 0.1, Basophils # (Auto) 0.0, Sodium Level 134L, Potassium Level 4.6, Chloride Level 94L, Carbon Dioxide Level 25, Anion Gap 15H, Blood Urea Nitrogen 23H, Creatinine 1.20, Estimat Glomerular Filtration Rate 48, BUN/Creatinine Ratio 19, Glucose Level 142H, Calcium Level 9.3, Corrected Calcium 9.2, Total Bilirubin 0.2, Aspartate Amino Transf (AST/SGOT) 40H, Alanine Aminotransferase (ALT/SGPT) 38, Alkaline Phosphatase 123, Total Protein 7.5, Albumin 4.1 02/12/19 19:30: Urine Color YELLOW, Urine Clarity CLEAR, Urine pH 5.5, Urine Specific [place] 1.010L, Urine Protein NEGATIVE, Urine Glucose (UA) NEGATIVE, Urine Ketones NEGATIVE, Urine Nitrite NEGATIVE, Urine Bilirubin NEGATIVE, Urine Urobilinogen 0.2, Urine Leukocyte Esterase NEGATIVE, Urine RBC (Auto) NEGATIVE, Urine RBC NONE, Urine WBC 0-2, Urine Squamous Epithelial Cells 0-2, Urine Crystals PRESENTH, Urine Calcium Oxalate Crystals MODERATEH, Urine Bacteria TRACE, Urine Casts PRESENT, Urine Hyaline Casts 2-5H, Urine Mucus SMALLH, Urine Culture Indicated NO 02/12/19 19:38: Prothrombin Time 14.2, INR Comment 1.1, Activated Partial Thromboplast Time 27 02/12/19 21:54: White Blood Count 10.4, Red Blood Count 2.97L, Hemoglobin 8.7#L, Hematocrit 27L, Mean Corpuscular Volume 90, Mean Corpuscular Hemoglobin 29, Mean Corpuscular Hemoglobin Concent 33, Red Cell Distribution Width 13.8, Platelet Count 186, Mean Platelet Volume 9.5, Neutrophils (%) (Auto) 75, Lymphocytes (%) (Auto) 18, Monocytes (%) (Auto) 7, Eosinophils (%) (Auto) 0, Basophils (%) (Auto) 0, Neutrophils # (Auto) 7.8, Lymphocytes # (Auto) 1.9, Monocytes # (Auto) 0.7, Eosinophils # (Auto) 0.0, Basophils # (Auto) 0.0 02/13/19 03:18: White Blood Count 12.6H, Red Blood Count 3.58L, Hemoglobin 10.4L, Hematocrit 32L , Mean Corpuscular Volume 89, Mean Corpuscular Hemoglobin 29, Mean Corpuscular Hemoglobin Concent 33, Red Cell Distribution Width 13.9, Platelet Count 241, Mean Platelet Volume 10.2, Neutrophils (%) (Auto) 87H, Lymphocytes (%) (Auto) 8L , Monocytes (%) (Auto) 4, Eosinophils (%) (Auto) 0, Basophils (%) (Auto) 0, Neutrophils # (Auto) 11.0H, Lymphocytes # (Auto) 1.0, Monocytes # (Auto) 0.6, Eosinophils # (Auto) 0.0, Basophils # (Auto) 0.0, Sodium Level 137, Potassium Level 4.8, Chloride Level 107, Carbon Dioxide Level 19L, Anion Gap 11, Blood Urea Nitrogen 20H, Creatinine 0.95, Estimat Glomerular Filtration Rate > 60, BUN/Creatinine Ratio 21, Glucose Level 172H, Calcium Level 7.7L, Phosphorus Level 4.5, Magnesium Level 1.7 Assessment/Plan Assessment/Plan Assessment/Plan S/p splenectomy Plan is to encourage IS use, encourage ambulation, increase diet, and utilize PO pain medications. Clinical Quality Measures DVT/VTE Risk/Contraindication: Risk Factor Score Per Nursin RFS Level Per Nursing on Admit: 4+=Very High CHAD SIMON DO 02/13/19 1148: Subjective Time Seen by a Provider: 11:30 Subjective/Events-last exam Pt asking about when she can go home. Review of Systems General: No Chills, No Night Sweats; Malaise Pulmonary: No Dyspnea, No Cough Cardiovascular: No: Chest Pain Objective Exam General Appearance: No Apparent Distress, Chronically ill HEENT: PERRL/EOMI, Pale Conjunctivae (L), Pale Conjunctivae (R) Respiratory: Lungs Clear, Normal Breath Sounds Cardiovascular: Regular Rate, Rhythm, No Murmur Gastrointestinal: soft, hernia (small umbilical), other (incision c/d/i) Supervisory-Addendum Brief Verification & Attestation Participated in pt care: history, MDM, physical Personally performed: exam, history, MDM Care discussed with: Medical Student Procedures: n/a Verification and Attestation of Medical Student E/M Service A medical student performed and documented this service in my presence. I reviewed and verified all information documented by the medical student and made modifications to such information, when appropriate. I personally performed the physical exam and medical decision making. Chad Simon, Feb 13, 2019,11:48 LV SULLIVAN, Feb 13, 2019 11:37 CHAD SIMON DO Feb 13, 2019 11:48
--- NOTE | 2019-02-13 12:48 | Physical Therapy Evaluation ---
PT Evaluation-General Medical Diagnosis Admission Date Feb 12, 2019 at 22:03 Medical Diagnosis: lacerated spleen Onset Date: Feb 12, 2019 Therapy Diagnosis Therapy Diagnosis: weakness Height/Weight Height (Feet): 5 Height (Inches): 5.00 Weight (Pounds): 185 Weight (Ounces): 0.0 Precautions Precautions/Isolations: Fall Prevention, Standard Precautions Weight Bear Status Right Lower Extremity: Right Weight Bearing/Tolerated Left Lower Extremity: Left Weight Bearing/Tolerated Referral Physician: Alfred Reason for Referral: Evaluation/Treatment Medical History Pertinent Medical History: Arthritis Current History Patient fell off the side of her stairs in the home from approximately the 5th step. she experienced (L) side rib pain. She was taken to the ER. 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 Social History Home: [facility] Current Living Status: Other Family Entry Into Home: Stairs With Railing Prior/Core FIM Prior Level of Function Therapy Code Descriptions/Definitions Functional [place] Measure: 0=Not Assessed/NA 4=Minimal Assistance 1=Total Assistance 5=Supervision or Setup 2=Maximal Assistance 6=Modified [place] 3=Moderate Assistance 7=Complete [place] Therapy Quality Codes: 6 Independent with activity with or without an assistive device 5 Patient requires set up or clean up by helper. Patient completes activity by themselves 4 Supervision or touching assist (CGA). [place] provide cues , steadying assist 3 The helper provides less than half the effort to complete the activity 2 The helper provides more than half the effort to complete the activity 1 Dependent. The helper does all the effort to complete an activity 7 Patient refused to complete or attempt activity 9 The patient did not perform the activity before the current illness or injury 88 Not attempted due to Medical conditions or safety concerns Functional Abilities and Goals: Independent: Patient completed the activities by him/herself, with or without an assistive device, with no assistance from a helper. Needed Some Help: Patient needed partial assistance from another person to complete activities. Dependent: A helper completed the activities for the patient. Unknown: Not Applicable: Bed Mobility: 7 Transfers (B,C,W/C) (FIM): 7 Gait: 7 Stairs: 7 PT Evaluation-Current Subjective Pt reports she is feeling faint and weak following surgery. Has abdominal pain 5/10. Objective Patient Orientation: Normal For Age Problem Solving: Good Attachments: SCD's, Morris Catheter, IV ROM/Strength ROM Upper Extremities WNL ROM Lower Extremities WNL Strength Lower Extremities Gross 4+/5 Sensory Vision: Functional Hearing: Functional Sensation Left Upper Extremity: Intact Transfers Therapy Code Descriptions/Definitions Functional [place] Measure: 0=Not Assessed/NA 4=Minimal Assistance 1=Total Assistance 5=Supervision or Setup 2=Maximal Assistance 6=Modified [place] 3=Moderate Assistance 7=Complete [place] Transfers (B, C, W/C) (FIM): 4 Rollin Supine to/from Sit: 4 Sit to/from Stand: 4 Min A bed mobility and transfers secondary to weakness from pain. Pt stood bedside with fair stability but felt light headed after 1-2 minutes Gait Comments/Gait Description no gait secondary to lines and patient feeling faint. She has sufficient stability and strength and anticipate gait will not be a problem. Assessment/Needs Pt weak from recent fall and surgery. She demonstrated fair standing balance and was stable in standing. Bed mobility limited by abdominal pain during muscle contraction. She will benefit from therapy to promote safe return to transfers and gait. Expect a short length of stay with therapy services due to prior level of function. Rehab Potential: Good PT Detention Goals Full Decator Operator Goals PT Full Decator Operator Goals Time Frame: Feb 17, 2019 Transfers (B,C,W/C) (FIM): 6 Gait (FIM): 6 Gait distance (FIM): 3=150 ft Distance: 150 Gait Level of Assist: 6 Gait Assistive Device: None Stairs (FIM): 5 # of Steps: 10 PT Plan Problem List Problem List: Activity Tolerance, Balance, Gait, Bed Mobility Treatment/Plan Treatment Plan: Continue Plan of Care Treatment Plan: Bed Mobility, Functional Strength, Gait, Therapeutic Exercise, Transfers Frequency: 5 times per week Estimated Hrs Per Day: .25 hour per day Time/GCodes Time In: 1010 Time Out: 1040 Total Billed Treatment Time: 30 Total Billed Treatment visit, evaluation moderate complexity 30 min FABIOLA RANGEL PT Feb 13, 2019 12:48
--- NOTE | 2019-02-13 12:55 | NUR ---
PATIENT TRANSFERRED TO 4TH FLOOR ROOM 404 AT THIS TIME. PERSONAL BELONGINGS SENT WITH PATIENT, REPORT GIVEN TO CATHLEEN RN TO ASSUME CARE OF PATIENT.
--- NOTE | 2019-02-13 13:00 | NUR ---
Pt to room 404. Agree with previous family assessment worker.
--- NOTE | 2019-02-13 16:05 | Anesthesia-General Post-Op ---
General Patient Condition Mental Status/LOC: Same as Preop Cardiovascular: Satisfactory Nausea/Vomiting: Absent Respiratory: Satisfactory Pain: Controlled Complications: Absent Post Op Complications Complications None Follow Up Care/Instructions Patient Instructions None needed. Anesthesia/Patient Condition Patient Condition Patient is doing well, no complaints, stable vital signs, no apparent adverse anesthesia problems. No complications reported per nursing. MYA BRANDON CRNA Feb 13, 2019 16:05
[2019-02-14] MEDS: ONDANSETRON 4 MG/2 ML (SDV) Z0FRAN IVP PRN ×3 (00:07→20:27)
[2019-02-14] MEDS: LACTATED RINGERS 1,000 ML IV SCH ×2 (03:13→13:16)
[2019-02-14 03:45] VITALS: BP 105/66
[2019-02-14] MEDS: HYDROcodone/APAP 5 MG/325 MG (LORTAB) TAB PO PRN ×3 (05:28→22:32)
[2019-02-14] MEDS ORDERED: POTASSIUM CL 10MEQ/50ML IVPB 50 ML IV SCH (06:00)
[2019-02-14] MEDS ORDERED: KCL 20 MEQ TAB (K-DUR) PO SCH (06:00)
[2019-02-14] MEDS ORDERED: MAGNESIUM 1 GM/100 ML IVPB 100 ML IV SCH (06:00)
[2019-02-14 08:00] VITALS: BP 98/56
[2019-02-14] MEDS: PANTOPRAZOLE 40 MG (PROTONIX) VIAL IVP SCH (08:12)
[2019-02-14] MEDS: morphine INJ 4 MG/ML 1 ML (VIAL/SYRINGE) IVP PRN ×2 (08:13→13:50)
[2019-02-14] MEDS: IBUPROFEN 600 MG (MOTRIN) TAB PO PRN ×2 (08:41→20:27)
--- NOTE | 2019-02-14 11:14 | Progress Note - Surgery ---
PAKOKOSTASLV, 02/14/19 1114: Subjective Date Seen by a Provider: Feb 14, 2019 Time Seen by a Provider: 10:35 Subjective/Events-last exam Pt laying in bed and having some pain. Morris was still in place, so that will be d/c today. Need to increase ambulation to improve symptoms and bowel motility. Will order labs for updated Hg level. Increasing diet to soft diet and will see how she tolerates. Review of Systems General: Fatigue Pulmonary: No Dyspnea, No Cough Cardiovascular: No: Chest Pain, Palpitations Gastrointestinal: Abdominal Pain; No: Nausea, Vomiting Objective Exam Vital Signs Date Time Temp Pulse Resp B/P (MAP) Pulse Ox O2 Delivery O2 Flow Rate FiO2 02/14/19 08:48 Room Air 02/14/19 08:00 99.8 91 16 98/56 (70) 92 Room Air 02/14/19 03:45 98.8 97 20 105/66 (79) 96 Room Air 02/13/19 23:55 99.5 95 20 96/52 (67) 92 Room Air 02/13/19 21:00 Room Air 02/13/19 20:20 99.4 97 20 130/74 (92) 95 Room Air 02/13/19 16:02 99.5 86 20 123/81 (95) 100 Room Air I & O 02/14/19 07:00 Intake Total 3895 ml Output Total 1950 ml Balance 1945 ml Capillary Refill : Less Than 3 Seconds General Appearance: No Apparent Distress, Chronically ill HEENT: PERRL/EOMI, Pale Conjunctivae (L), Pale Conjunctivae (R) Respiratory: Lungs Clear, Normal Breath Sounds Cardiovascular: Regular Rate, Rhythm, No Murmur Gastrointestinal: soft, hernia (small umbilical), other (incision c/d/i) Extremity: No Calf Tenderness Skin: Normal Color, Warm/Dry Results Lab Microbiology 02/13/19 MRSA Screen - Final, Complete MRSA not isolated Assessment/Plan Assessment/Plan Assessment/Plan S/p splenectomy Plan is to increase ambulation, advance diet to a soft diet, and d/c Morirs. Will update labs for Hg level. Clinical Quality Measures DVT/VTE Risk/Contraindication: Risk Factor Score Per Nursin RFS Level Per Nursing on Admit: 4+=Very High AJ SIMON DO 02/14/19 1144: Subjective Time Seen by a Provider: 10:35 Subjective/Events-last exam Pt has min-mod pain, mostly controlled. She is tired. Denies vomiting, not really nauseous. Assessment/Plan Assessment/Plan Assessment/Plan Pt told she has to move today and use IS. Supervisory-Addendum Brief Verification & Attestation Participated in pt care: history, MDM, physical Personally performed: exam, history, MDM Care discussed with: Medical Student Procedures: n/a Verification and Attestation of Medical Student E/M Service A medical student performed and documented this service in my presence. I reviewed and verified all information documented by the medical student and made modifications to such information, when appropriate. I personally performed the physical exam and medical decision making. Aj Simon, Feb 14, 2019,11:44 LV SULLIVAN, Feb 14, 2019 11:14 AJ SIMON DO Feb 14, 2019 11:44
[2019-02-14 12:00] VITALS: BP 98/63
[2019-02-14 16:00] VITALS: BP 112/72
[2019-02-14 19:54] VITALS: BP 119/73
[2019-02-14] MEDS: CATHETER FLUSH 10 ML SYR IV PRN (20:28)
[2019-02-14 23:42] VITALS: BP 115/74
[2019-02-15] MEDS: morphine INJ 4 MG/ML 1 ML (VIAL/SYRINGE) IVP PRN (00:19)
[2019-02-15] MEDS: LACTATED RINGERS 1,000 ML IV SCH ×3 (00:39→23:21)
--- NOTE | 2019-02-15 00:42 | NUR ---
PT TOLERATING PO FLUIDS, LR NOT HUNG AT THIS TIME PER ORDER /COMMENT ON ORDER.
[2019-02-15 04:00] VITALS: BP 112/78
[2019-02-15] MEDS: HYDROcodone/APAP 5 MG/325 MG (LORTAB) TAB PO PRN ×4 (04:14→22:43)
[2019-02-15] MEDS: ONDANSETRON 4 MG/2 ML (SDV) Z0FRAN IVP PRN ×2 (04:22→20:03)
[2019-02-15] MEDS ORDERED: FLUT9.9S NS (07:50)
[2019-02-15] MEDS ORDERED: MAGN400T39 PO (07:50)
[2019-02-15] MEDS ORDERED: ASPI-992 PO (07:50)
[2019-02-15] MEDS ORDERED: LEVO112T55 PO (07:50)
[2019-02-15] MEDS ORDERED: METO-333 PO (07:50)
[2019-02-15] MEDS ORDERED: MULT-192 PO (07:50)
[2019-02-15] MEDS ORDERED: CHOL20002 PO (07:50)
[2019-02-15] MEDS ORDERED: LEVO5TAB28 PO (07:50)
[2019-02-15 08:00] VITALS: BP 116/69
--- NOTE | 2019-02-15 08:21 | NUR ---
SPOKE WITH PT WELL GOING OVER THE EXT MED HISTORY TO COMPLETE THE MED REC. PT WAS ABLE TO VERIFY ALL HER MEDS AND HOW SHE TAKES THEM. OTC MEDS: MAG-OXIDE 400M HS LEVOCETIRIZINE 5M HS VITAMIN D 3: 1 HS GUMMY MULTIVITAMIN: 1 DAILY FLUTICASONE: UD EXCEDRIN: 2 TABS Q 6 H PRN
[2019-02-15] MEDS: PANTOPRAZOLE 40 MG (PROTONIX) VIAL IVP SCH (09:17)
--- NOTE | 2019-02-15 09:44 | Physical Therapy Daily Note ---
PT Daily Note-Current Subjective Patient reluctantly agrees to PT. Pain Numeric Pain Scale: 5-Moderate Pain Location: Medial, Upper, Lower Location Body Site: Abdomen Pain Description: Acute Mental Status Patient Orientation: Normal For Age Transfers Therapy Code Descriptions/Definitions Functional [place] Measure: 0=Not Assessed/NA 4=Minimal Assistance 1=Total Assistance 5=Supervision or Setup 2=Maximal Assistance 6=Modified [place] 3=Moderate Assistance 7=Complete [place] Therapy Quality Codes: 6 Independent with activity with or without an assistive device 5 Patient requires set up or clean up by helper. Patient completes activity by themselves 4 Supervision or touching assist (CGA). [place] provide cues , steadying assist 3 The helper provides less than half the effort to complete the activity 2 The helper provides more than half the effort to complete the activity 1 Dependent. The helper does all the effort to complete an activity 7 Patient refused to complete or attempt activity 9 The patient did not perform the activity before the current illness or injury 88 Not attempted due to Medical conditions or safety concerns Transfers (B, C, W/C) (FIM): 6 Scootin Rollin Supine to/from Sit: 6 Sit to/from Stand: 6 Bed to/from Chair: 6 Weight Bearing Right Lower Extremity: Right Weight Bearing/Tolerated Left Lower Extremity: Left Weight Bearing/Tolerated Gait Training Gait (FIM): 6 Distance (FIM): 3=150 ft Distance: 350' Gait Level of Assist: 6 Gait Assistive Device: FWW safe and functional with FWW (by choice) Assessment Patient is able to perform ambulation independently, however, requires encouragement to perform due to pain. PT to dismiss patient from services at this time RN notified to encourage patient to continue with ambulation PRN in hallway. Education with patient given on importance of increasing activity to prevent possible negative side effects is not. Patient voices understanding. PT Residential Goals Associate Accountant Goals PT Associate Accountant Goals Time Frame: Feb 17, 2019 Transfers (B,C,W/C) (FIM): 6 Gait (FIM): 6 Gait distance (FIM): 3=150 ft Distance: 150 Gait Level of Assist: 6 Gait Assistive Device: None Stairs (FIM): 5 # of Steps: 10 PT Plan Treatment/Plan Treatment Plan: Discontinue PT, goals met Treatment Plan: Bed Mobility, Functional Strength, Gait, Therapeutic Exercise, Transfers Frequency: 5 times per week Estimated Hrs Per Day: .25 hour per day Time/GCodes Time In: 901 Time Out: 909 Total Billed Treatment Time: 8 Total Billed Treatment 1 visit FA 8 min CHA WINTER PT Feb 15, 2019 09:44
[2019-02-15 12:00] VITALS: BP 130/72
--- NOTE | 2019-02-15 12:24 | NUR ---
Attempted visit: Pt resting with eyes closed. She did not respond when I gently knocked at the door. Offered quiet prayer for healing rest. Will follow up as able/needed. Enedelia affiliation unknown.
--- NOTE | 2019-02-15 13:04 | Progress Note - Surgery ---
Subjective Time Seen by a Provider: 12:27 Subjective/Events-last exam Pt seen and examined, states she still has abdominal pain and doesn't think she can go home today. Looks more alert today. Review of Systems Pulmonary: No Dyspnea, No Cough Cardiovascular: No: Chest Pain Gastrointestinal: No: Nausea, Vomiting Objective Exam Vital Signs Date Time Temp Pulse Resp B/P (MAP) Pulse Ox O2 Delivery O2 Flow Rate FiO2 02/15/19 08:00 Room Air 02/15/19 08:00 37.0 81 16 116/69 94 Room Air 02/15/19 04:00 [id number] 90 18 112/78 (89) 95 Room Air 02/14/19 23:42 37.90688 94 16 115/74 (88) 97 Room Air 02/14/19 21:00 Room Air 02/14/19 19:54 37.71227 87 16 119/73 (88) 99 Room Air 02/14/19 16:00 36.61271 84 18 112/72 (85) 97 Room Air I & O 02/15/19 07:00 Intake Total 850 ml Output Total 1475 ml Balance -625 ml Capillary Refill : Less Than 3 Seconds General Appearance: No Apparent Distress, WD/WN HEENT: PERRL/EOMI Respiratory: Lungs Clear, Normal Breath Sounds Cardiovascular: Regular Rate, Rhythm, No Murmur Gastrointestinal: soft, hernia (small umbilical), other (incision c/d/i) Extremity: No Calf Tenderness Skin: Normal Color, Warm/Dry Results Lab Laboratory Tests 02/15/19 12:52: Lab Scanned Report Transfusion Reaction Form Microbiology 02/13/19 MRSA Screen - Final, Complete MRSA not isolated Assessment/Plan Assessment/Plan Assessment/Plan S/P Splenectomy Pt encouraged to ambulate and use IS. Increase diet. Pain control and will plan D/C tomorrow. Clinical Quality Measures DVT/VTE Risk/Contraindication: Risk Factor Score Per Nursin RFS Level Per Nursing on Admit: 4+=Very High AJ HENRIQUEZ DO Feb 15, 2019 13:04
[2019-02-15] MEDS: IBUPROFEN 600 MG (MOTRIN) TAB PO PRN ×2 (14:10→23:42)
[2019-02-15 16:00] VITALS: BP 127/82
--- NOTE | 2019-02-15 19:30 | NUR ---
DR HENRIQUEZ ORDERED VOLTAREN GEL 2 GM QID PRN BACK PAIN.
[2019-02-15 19:55] VITALS: BP 148/90
[2019-02-15] MEDS: DICLOFENAC 1% GEL 100 GM (VOLTAREN) TUBE TOP PRN (20:08)
[2019-02-16] VITALS: BP 137/87
[2019-02-16] MEDS: DICLOFENAC 1% GEL 100 GM (VOLTAREN) TUBE TOP PRN (00:50)
[2019-02-16] MEDS: ONDANSETRON 4 MG/2 ML (SDV) Z0FRAN IVP PRN (02:48)
[2019-02-16] MEDS: HYDROcodone/APAP 5 MG/325 MG (LORTAB) TAB PO PRN ×2 (02:48→07:01)
[2019-02-16 04:00] VITALS: BP 138/71
[2019-02-16 08:00] VITALS: BP 154/79
[2019-02-16] MEDS ORDERED: PANTOPRAZOLE 40 MG (PROTONIX) TAB PO SCH (09:00)
[2019-02-16] MEDS: IBUPROFEN 600 MG (MOTRIN) TAB PO PRN (09:07)
[2019-02-16 12:00] VITALS: BP 167/80
[2019-02-16] MEDS: LACTATED RINGERS 1,000 ML IV SCH (12:08)
[2019-02-16] MEDS ORDERED: ACHD5005 PO (15:56)
--- NOTE | 2019-02-16 15:58 | Discharge Inst-Surgical ---
Discharge Inst-Surgical Reconcile Patient Problems Problems Reviewed?: Yes Depart Medication/Instructions New, Converted or Re-Newed RX: RX Given to Pt/Family Patient Instructions Follow up Appt: Make appointment for 1 week. [phone] Instructions: No lifting greater than 20 pounds. No strenuous activity. May shower in 24 hours, no tub bath or soaking. Use incentive spirometer at home as directed. No Smoking Skin/Wound Care: May remove bandages in am. You need to leave the tony in place and come to clinic to have them removed. Symptoms to Report: Appetite Changes, Extremity Discoloration, Numbness/Tingling, Swelling Increased, Bleeding Excessive, Eyesight Changes, Pain Increased, Urine Color Change, Constipation(Persistent), Fever over 101 degree F, Pain/Pressure in chest, Urinating Difficulty, Cough Up/Vomit Blood, Heart Beat Irreg/Pounding, Pain/Pressure in jaw, Cramps in feet or legs, Lightheadedness, Pain/Pressure in shoulder, Diarrhea(Persistent), Memory Changes Suddenly, Questions/Concerns, Weight gain consecutive days, Dizziness/Fainting, Nausea/Vomiting, Shortness of Breath, Weight gain over 2 pounds If questions or concerns contact your physician Or seek help at emergency department. Activity Activity as Tolerated: Yes Activity Instructions: Avoid Stress to Incision Driving Instructions: No Driving/Refer to Dr. Rose Discharge Diet: No Restrictions Diet After 24 Hours: Clear Liquid if Nauseous If Any Problems/Questions/Issu: Contact Your Physician, Go to Emergency Room Skin/Wound Care Infection Signs and Symptoms: Increased Redness, Foul Odor of Wound, Increased Drainage, Skin Itchy or Has a Rash, Increased Swelling, Temperature Above 101 F Bathing Instructions: Shower Stitches/Tony/Dermabond Dis: Care of AJ Lam DO Feb 16, 2019 15:57
== END 2019-02-16 16:40 | disposition home or self-care (01) | DRG 799 ==
LOC: ER FS 17:27 → SDC 20:03 → ICU 22:03 → 4TH 02-13 12:50
PROVIDERS: ADMIT Surgery; ATTEND Surgery
PROC: 07TP0ZZ Resection of Spleen, Open Approach (ICD-10-PCS; principal; 2019-02-12 20:43)
DX: S36.032A Major laceration of spleen, initial encounter (principal); T79.4XXA Traumatic shock, initial encounter; S22.42XA Multiple fractures of ribs, left side, initial encounter for closed fracture; D62 Acute posthemorrhagic anemia; E03.9 Hypothyroidism, unspecified; I10 Essential (primary) hypertension; H53.8 Other visual disturbances; R51 Headache; M54.2 Cervicalgia; W10.8XXA Fall (on) (from) other stairs and steps, initial encounter; Y92.008 Other place in unspecified non-institutional (private) residence as the place of occurrence of the external cause; E66.9 Obesity, unspecified; Z68.34 Body mass index [BMI] 34.0-34.9, adult
CPT/HCPCS: 36415; 70450; 71045; 71260; 72125; 74177; 80048; 80053; 81000; 82962; 83735; 84100; 85025; 85610; 85730; 86850; 86900; 86901; 86920; 87081; 88305; 94664; 96361; 96374; 96375

== ENCOUNTER → 2021-01-18 | Outpatient (CLI) | payer BC ==
[~2021-01-18] MED LIST: ACHD5005 PO; ASPI-992 PO; CHOL20002 PO; FLUT9.9S NS; LEVO112T55 PO; LEVO5TAB28 PO; MAGN400T39 PO; METO-333 PO; MULT-192 PO
--- NOTE | 2021-01-18 16:50 | Diagnostic Imaging Report ---
INDICATION: Persistent cough. PA and lateral views of the chest are obtained. COMPARISON: No previous study is available for comparison at this time. FINDINGS: Heart size and pulmonary vasculature are within normal limits, and the lungs are clear, bilaterally. There is mild right convexity curvature of the thoracic spine. IMPRESSION: Unremarkable chest. Dictated by: Dictated on workstation # [id number]
== END ==
LOC: RAD FS 16:26
PROVIDERS: ATTEND Nurse Practitioner Family
DX: R05 Cough (principal)
CPT/HCPCS: 71046

== ENCOUNTER → 2022-03-11 | Outpatient (CLI) | payer BC ==
[~2022-03-11] MED LIST changes: +RT-ALBUTEROL SULF 2.5 MG/3 ML PRE-MIX VIAL INH ONE
== END ==
LOC: RT 15:45
PROVIDERS: ATTEND Nurse Practitioner Family
DX: J45.40 Moderate persistent asthma, uncomplicated (principal)
CPT/HCPCS: 94060; 94726; 94729